=== PATIENT | female | born 1990 | race African-American/Black ===

== ENCOUNTER 2020-08-21 17:27 | Emergency (ER) | payer BC, OTHER ==
--- OUTSIDE RECORDS SUMMARY | 2020-08-21 17:30 | XMS REPORT | Continuity of Care Document ---
:1990 Author Organization [facility] t Address [address] [place] [address] Care Team Providers Name Role Phone Joe Alberts MD Attending Clinician Doctor Unassigned, Name Attending Clinician Unavailable Silva RN Attending Clinician Unavailable Fellow, [facility] Attending Clinician Unavailable Mirian RN Attending Clinician Unavailable Payers Payer Name Policy Type Policy Number Effective Date Expiration Date S ource Problems This patient has no known problems. Allergies, Adverse Reactions, Alerts Allergy Allergy Status Severity Reaction(s) Onset Inactive Treating Comm ents Source Name Type Date Date Clinician No Known DA Active U 2018-0 [facility] 7-12 [facility] s 00:00: d 00 [facility] No Known DA Active U 2016- [facility] Allergie -15 Clear s 00:00: Natarajan 00 [facility] Medications This patient has no known medications. Procedures This patient has no known procedures. Encounters Start End Encounter Admission Attending Care Care Encounter Source Date/Time Date/Time Type Type Clinicians Facility Department ID 2020-08-19 2020-08-19 Telephone LAURA Alberts 1.2.840.114 [id number] 00:00:00 00:00:00 [facility] 350.1.13.10 [facility] 4.2.7.2.686 e Group [phone] in [address] [place] [address] 2020-08-19 2020-08-19 Orders Doctor CORINA 1.2.840.114 [id number] 00:00:00 00:00:00 Only Unassigned, TERESSA 350.1.13.10 [facility] 4.2.7.2.686 [phone] 009 2020-08-17 2020-08-17 Refill [facility] 1.2.840.114 [id number] 00:00:00 00:00:00 [facility] 350.1.13.10 [facility] 4.2.7.2.686 e Group [id number] in [address] [place] [address] 2020-08-15 2020-08-15 Nurse CORINA Ascencio 1.2.840.114 [id number] 00:00:00 00:00:00 Triage [facility]is [facility]13.10 [facility] 4.2.7.2.686 [id number] 019 2020-08-14 2020-08-14 Routine [facility] 1.2.840.114 [id number] 10:52:22 11:57:42 [facility] 350.1.13.10 Visit [facility] 4.2.7.2.686 e Group [phone] in [address] [place] [address] 2020-07-29 2020-07-29 Orders Doctor CORINA 1.2.840.114 [id number] 00:00:00 00:00:00 Only Unassigned, TERESSA 350.1.13.10 [facility] 4.2.7.2.686 [id number] [id number] 2020-07-29 2020-07-29 Telephone [facility] 1.2.840.114 [id number] 00:00:00 00:00:00 [facility] 350.1.13.10 [facility] 4.2.7.2.686 e Group [id number] in [address] [place] [address] 2020-07-19 2020-07-19 Routine Hernandez Chauhan 1.2.840.114 [id number] 09:39:25 10:11:26 [facility] 350.1.13.10 Visit [facility]INICS 4.2.7.2.686 [id number] 113 2020-07-18 2020-07-18 Telephone [facility] 1.2.840.114 [id number] 00:00:00 00:00:00 [facility] 350.1.13.10 [facility] 4.2.7.2.686 e Group [phone] in [address] [facility] od 2020-07-18 2020-07-18 Nurse CORINA Vela 1.2.840.114 [id number] 00:00:00 00:00:00 Triage Lc GANN[place] 350.1.13.10 [place] 13272.2.7.2.686 [id number] [id number] 2020-07-17 2020-07-17 Routine [facility] 1.2.840.114 [id number] 10:20:15 11:09:54 [facility] 350.1.13.10 Visit [facility] 4.2.7.2.686 e Group [phone] in 134 [facility] Results Test Description Test Time Test Comments Results Result Comments Source Coronavirus 2019 nCoV Bedside 2020-07-05 20:54:00 Test Item Value Reference Range Interpretation Comme nts [facility] Negative Negative results should be treated (test code = [id number]) a s presumptive and, ifinconsistent with clinical s igns and symptoms or necessaryfor pa tient management, should be teste d with an alternativemole cular assay. Negative results do not preclude [id number] tion and should not be used as the sole basis forpatient management deci sions. Negative results should beconsidered in the context of a pa tient's recent exposures,histo ry, presence of clinical signs and symptoms consistentwith COVID-19. BASIC METABOLIC [id number] 20:22:00 Test Item Value Reference Range Interpretation Comments SODIUM (test code = NA) 135 mEq/L 134-147 N POTASSIUM (test code = 3.7 mEq/L 3.4-5.0 N K) CHLORIDE (test code = 105 mEq/L 100-108 N CL) CARBON DIOXIDE (test 26 mEq/l 21-33 N code = CO2) ANION GAP (test code = 8 0-20 N GAP) GLUCOSE (test code = 79 mg/dL 70-110 N GLU) BLOOD UREA NITROGEN 8 mg/dL 7-18 N (test code = BUN) GLOMERULAR FILTRATION 118.1 105-110 H Units of measure = RATE (test code = GFR) ml/mi n/1.73 m2 CREATININE (test code = 0.7 mg/dL 0.6-1.3 N CREAT) CALCIUM (test code = 9.9 mg/dL 8.0-10.5 N CA) Is patient ? YHOW MANY WEEKS? 10 WEEKSHCG [id number] 20:22:00 Test Item Value Reference Range Interpretation Comments HCG SERUM (test 346002.3 0 - 6 code = HCG) NOT > 6 S UGGESTIVE OF EARLY RISES TWO FOLD EVERY 2 DA YS; SUGGEST RECONFIRMING AF TER 2 DAYS. 150,000- 200,[address] TRIMESTER 10,000 - 50,000 2N D & 3RD TRIMESTERResult s in joann-Internati onal Units/mL Is patient ? YHOW MANY WEEKS? 10 WEEKSCBC W/AUTO [id number] 19:38:00 Test Item Value Reference Range Interpretation Comments WHITE BLOOD CELL (test code = 7.8 x10 3/uL 4.5-11.0 N WBC) RED BLOOD CELL (test code = 4.30 x10 6/uL 3.54-5.02 N RBC) HEMOGLOBIN (test code = HGB) 13.4 g/dL 11.0-15.0 N HEMATOCRIT (test code = HCT) 41.1 % 33.0-45.0 N MEAN CELL VOLUME (test code = 95.6 fL 81.0-99.0 N MCV) MEAN CELL HGB (test code = MCH) 31.2 pg 27.0-33.0 N MEAN CELL HGB CONCETRATION 32.6 g/dL 33.0-37.0 L (test code = MCHC) RED CELL DISTRIBUTION WIDTH CV 13.2 % 11.5-14.5 N (test code = RDW) RED CELL DISTRIBUTION WIDTH SD 46.4 fL 37.0-54.0 N (test code = RDW-SD) PLATELET COUNT (test code = 222 x10 3/uL 150-400 N PLT) MEAN PLATELET VOLUME (test code 11.3 fL 7.0-9.0 H = MPV) NEUTROPHIL % (test code = NT%) 61.8 % 56.0-77.0 N IMMATURE GRANULOCYTE % (test 1.2 % 0.0-2.0 N code = IG%) LYMPHOCYTE % (test code = LY%) 28.8 % 14.0-32.0 N MONOCYTE % (test code = MO%) 7.4 % 4.8-9.0 N EOSINOPHIL % (test code = EO%) 0.5 % 0.3-3.7 N BASOPHIL % (test code = BA%) 0.3 % 0.0-2.0 N NUCLEATED RBC % (test code = 0.0 % 0-0 N NRBC%) NEUTROPHIL # (test code = NT#) 4.82 x10 3/uL 2.0-7.6 N IMMATURE GRANULOCYTE # (test 0.09 x10 3/uL 0.00-0.03 H code = IG#) LYMPHOCYTE # (test code = LY#) 2.25 x10 3/uL 1.0-3.8 N MONOCYTE # (test code = MO#) 0.58 x10 3/uL 0.1-0.8 N EOSINOPHIL # (test code = EO#) 0.04 x10 3/uL 0.0-0.2 N BASOPHIL # (test code = BA#) 0.02 x10 3/uL 0.0-0.2 N NUCLEATED RBC # (test code = 0.00 x10 3/uL 0.0-0.1 N NRBC#) MANUAL DIFF REQUIRED (test code NO = MDIFF) CBC W/AUTO [id number] 19:37:00 Test Item Value Reference Range Interpretation Comments WHITE BLOOD CELL (test code = x10 3/uL 4.5-11.0 WBC) RED BLOOD CELL (test code = RBC) x10 6/uL 3.54-5.02 HEMOGLOBIN (test code = HGB) 13.4 g/dL 11.0-15.0 N HEMATOCRIT (test code = HCT) 41.1 % 33.0-45.0 N MEAN CELL VOLUME (test code = fL 81.0-99.0 MCV) MEAN CELL HGB (test code = MCH) pg 27.0-33.0 MEAN CELL HGB CONCETRATION (test g/dL 33.0-37.0 code = MCHC) RED CELL DISTRIBUTION WIDTH CV % 11.5-14.5 (test code = RDW) PLATELET COUNT (test code = PLT) 222 x10 3/uL 150-400 N NEUTROPHIL % (test code = NT%) % 56.0-77.0 LYMPHOCYTE % (test code = LY%) % 14.0-32.0 NEUTROPHIL # (test code = NT#) x10 3/uL 2.0-7.6 LYMPHOCYTE # (test code = LY#) x10 3/uL 1.0-3.8 MANUAL DIFF REQUIRED (test code = MDIFF) UA RFLX MICR CULT IF [id number] 19:20:00 Test Item Value Reference Range Interpretation Comments UA COLOR (test code = COLU) YELLOW YEL/STRAW UA APPEARANCE (test code = SL CLOUDY CLEAR APPU) UA GLUCOSE DIPSTICK (test code NEGATIVE NEGATIVE = DGLUU) UA BILIRUBIN DIPSTICK (test NEGATIVE NEGATIVE code = BILU) UA KETONE DIPSTICK (test code NEGATIVE NEGATIVE = KETU) UA SPECIFIC GRAVITY (test code 1.030 1.005-1.030 N = SGU) UA BLOOD DIPSTICK (test code = 2+ NEGATIVE A BENJAMIN) UA PH DIPSTICK (test code = 5.0 5.0-7.0 N KATIE) UA PROTEIN DIPSTICK (test code 1+ NEGATIVE A = PROU) UA UROBILINIOGEN DIPSTICK 4.0 mg/dL 0.2-1.0 A (test code = URO) UA NITRITE DIPSTICK (test code NEGATIVE NEGATIVE = CRYS) UA LEUKOCYTE ESTERASE DIPSTICK 2+ NEGATIVE A (test code = LEUU) UA WBC (test code = WBCU) 10-20 WBC/HPF 0-3 A UA RBC (test code = RBCU) 11-20 RBC/HPF 0-3 UA WBC NO REFLEX (test code = 10-20 WBC/HPF 0-3 A WBCUCL) UA BACTERIA (test code = BACU) NONE SEEN /HPF NONE SEEN UA SQUAMOUS CELLS (test code = 11-25 /HPF NONE SEEN A SQU) UA MUCUS (test code = MUCU) 2+ /LPF NONE SEEN A Indication for culture: Suprapubic PainSpecimen Description: CLEAN CATCH- DUP AB/PEL/SC/[id number] 19:10:00 [facility] 1990 Sex: F Name: JUSTIN BLANTON [facility] : Age/S: 29 / F [address] [place] [address] Blvd Unit #: [id number] Loc: [place] [address] Phys: Rafi Patel MD Acct: [id number] Dis Date: Status: REG ER PHONE #: [phone] Exam Date: 07/05/2020 1854 FAX #: [phone] Reason: see US PREG 1st TRIMTR EXAMS: CPT CODE: [id number] DUP AB/PEL/SC/LTD 33090 TRANSABDOMINAL OBSTETRICAL PELVIC ULTRASOUND, DUPLEX OVARIAN DOPPLER INDICATION:Pelvic Pain. Nausea and vomiting. Rule out ovarian torsion TECHNIQUE: Transabdominal obstetrical pelvic ultrasound was performed with brito scale and Doppler images. COMPARISONS: Pelvic ultrasound 01/19/2019 FINDINGS: The maternal urinary bladder appears normal. The uterus measures 11.3 x 7.6 x 10.3 cm. There is a single intrauterine gestation with mean sac diameter 5.1 cm. A pole is visible. Thefetal heart rate is 171 bpm. There is a 1.7 x 1.2 x 1.3 cm exophytic subserosal anterior uterine body fibroid. The right ovary measures 3.2 x 2.8 x 2.7 cm. There is no rmal color Doppler blood flow to the right ovary. There is normal low resistance arterial spectral Doppler waveform with peak velocity of 18 cm/s. The left ovary measures 3.2x 2.2 x 2.5 cm. There is normal color Doppler blood flow to the left ovary. There is a normal low resistance arterial spectral Doppler waveform with peak velocity of 32 cm/s. IMPRESSION: 1. There is a single live intrauterine gestation. The estimated ultrasonographic age is 10 weeks and 1 day. 2. There is bilateral ovarian bloodflow and no evidence of ovarian torsion. 3. There is a 1.7 x 1.2 x 1.3 cm exophytic subserosal anterior uterine body fibroid. at 1910 Reported and signed by: Eris White D.O. PAGE 1 Signed Report (CONTINUED) Name: JUSTIN BLANTON [facility] : 1990 Age/S: 29 / F [address] [place] [address] Bl Unit #: [id number] Loc: [place] [address] Phys: Rafi Patel MD Acct: [id number] Dis Date: Status: REG ER PHONE #: [phone] Exam Date: 07/05/2020 1854 FAX #: [phone] Reason: see US PREG 1st TRIMTR EXAMS: CPT CODE: [id number] DUP AB/PEL/SC/LTD 18387 <Continued> CC: Technologist: Olivier Morales RDMS() Trnscb Date/Time: 07/05/2020 (1909) [email or web address] Orig Print D/T: S: 07/05/2020 (1912) Probe: PAGE 2 Signed Report- US PREG 1ST [id number] 19:10:00 [facility] : 1990 Sex: F Name: JUSTIN BLANTON [facility] : Age/S: 29 / F [address] [place] [address] Bl Unit #: [id number] Loc: [place] [address] Phys: Rafi Patel MD Acct: [id number] Dis Date: Status: REG ER PHONE #: [phone] Exam Date: 07/05/2020 1854 FAX #: [phone] Reason: Pelvic Pain EXAMS: CPT CODE: [id number] US PREG 1ST TRIMTR 69044 TRANSABDOMINAL OBSTETRICAL PELVIC ULTRASOUND, DUPLEX OVARIAN DOPPLER INDICATION:Pelvic Pain. Nausea and vomiting. Rule out ovarian torsion TECHNIQUE: Transabdominal obstetrical pelvic ultrasound was performed with brito scale and Doppler images. COMPARISONS: Pelvic ultrasound 01/19/2019 FINDINGS: The maternal urinary bladder appears normal. The uterus measures 11.3 x 7.6 x 10.3 cm. There is a single intrauterine gestation with mean sac diameter 5.1 cm. A pole is visible. Thefetal heart rate is 171 bpm. There is a 1.7 x 1.2 x 1.3 cm exophytic subserosal anterior uterine body fibroid. The right ovary measures 3.2 x 2.8 x 2.7 cm. There is no rmal color Doppler blood flow to the right ovary. There is normal low resistance arterial spectral Doppler waveform with peak velocity of 18 cm/s. The left ovary measures 3.2x 2.2 x 2.5 cm. There is normal color Doppler blood flow to the left ovary. There is a normal low resistance arterial spectral Doppler waveform with peak velocity of 32 cm/s. IMPRESSION: 1. There is a single live intrauterine gestation. The estimated ultrasonographic age is 10 weeks and 1 day. 2. There is bilateral ovarian bloodflow and no evidence of ovarian torsion. 3. There is a 1.7 x 1.2 x 1.3 cm exophytic subserosal anterior uterine body fibroid. at 1910 Reported and signed by: Eris White D.O. PAGE 1 Signed Report (CONTINUED) Name: JUSTIN BLANTON : 1990 Age/S: 29 / F [address] [place] [address] Unit #: [id number] Loc: [place] [address] Phys: Rafi Patel MD Acct: [id number] Dis Date: Status: REG ER PHONE #: [phone] Exam Date: 07/05/2020 1854 FAX #: [phone] Reason: Pelvic Pain EXAMS: CPT CODE: [id number] US PREG 1ST TRIMTR 26039 <Continued> CC: Technologist: Olivier Morales RDMS(AB) Trnscb Date/Time: 07/05/2020 (1909) [email or web address] Orig Print D/T: S: 07/05/2020 (1912) Probe: PAGE 2 Signed Report- DUP AB/PEL/SC/[id number] 15:36:00 Name: JUSTIN BLANTON : 1990 Age/S: 28 / F [address] [place] [address] Unit #: [id number] Loc: [place] Phys: Rafi Patel MD Acct: [id number] Dis Date: Status: REG ER PHONE #: [phone] Exam Date: 01/19/2019 1523 FAX #: [phone] Reason: PAIN EXAMS: CPTCODE: [id number] DUP AB/PEL/SC/LTD 66150 PROCEDURE: FIRST TRIMESTER ULTRASOUND INDICATION: 13 weeks with pelvic pain andvaginal bleeding. COMPARISON: 12/16/2018 ultrasound. TRANSABDOMINAL SCAN: Uterus measures 10.4 x 7.1 x 7.3 cm containing intrauterine gestational sac demonstrating a pole within with average crown-rump length of 2.46 cm which correlates with 9 weeks 1 day gestational age. No heart tones or color flow appreciated within. Anterior myometrial round mass measures 1.9 x 1.7 x 1.8 cm likely representing fibroid. The right ovary appears normal measuring 2.8 x 1.6 x 2 cm with arterial waveforms documented. Left ovary measures 3.7 x 2.9 x 2.6 cm containing a 1.9 x 1.8 x 1.9 cm anechoic avascular cyst withinwhich may demonstrate a thickened wall consistent with corpus luteal cyst. Arterial wave forms to the ovary are documented. No adnexal masses are seen otherwise. No free pelvic fluid. TRANSVAGINAL SCAN: Not performed. IMPRESSION: Findings consistent with demise. SL: [id number] at 1536 Reported and signed by: Shilo Krishna M.D. CC: Ary Horton MD Technologist: Fariba Womack RDMS(OB)(AB) Trnscb Date/Time: 01/19/2019 (1536) [email or web address] PAGE 1 Signed Report- US PREG 1ST [id number] 15:36:00 Name: JUSTIN BLANTON [facility] : 1990 Age/S: 28 / F [address] [place] [address] Unit #: [id number] Loc: [id number] Phys: Cesar Thomas Acct: [id number] Dis Date: Status: REG ER PHONE #: [phone] Exam Date: 01/19/2019 1522 FAX #: [phone] Reason: Pelvic Pain EXAMS: CPTCODE: [id number] US PREG 1ST TRIMTR 28689 PROCEDURE: FIRST TRIMESTER ULTRASOUND INDICATION: 13 weeks with pelvic pain andvaginal bleeding. COMPARISON: 12/16/2018 ultrasound. TRANSABDOMINAL SCAN: Uterus measures 10.4 x 7.1 x 7.3 cm containing intrauterine gestational sac demonstrating a pole within with average crown-rump length of 2.46 cm which correlates with 9 weeks 1 day gestational age. No heart tones or color flow appreciated within. Anterior myometrial round mass measures 1.9 x 1.7 x 1.8 cm likely representing fibroid. The right ovary appears normal measuring 2.8 x 1.6 x 2 cm with arterial waveforms documented. Left ovary measures 3.7 x 2.9 x 2.6 cm containing a 1.9 x 1.8 x 1.9 cm anechoic avascular cyst withinwhich may demonstrate a thickened wall consistent with corpus luteal cyst. Arterial wave forms to the ovary are documented. No adnexal masses are seen otherwise. No free pelvic fluid. TRANSVAGINAL SCAN: Not performed. IMPRESSION: Findings consistent with demise. SL: [id number] at 1536 Reported and signed by: Shilo Krishna M.D. CC: Cesar RANDHAWA; Ary Horton MD Technologist: Fariba Womack RDMS(OB)(AB) Trnscb Date/Time: 01/19/2019 (1536) [email or web address] Orig Print D/T: S: 01/19/2019 (4560) Probe: PAGE 1 Signed ReportHEPATIC FUNCTION [id number] 15:33:00 Test Item Value Reference Range Interpretation Comments TOTAL PROTEIN (test code = PROT) 7.9 g/dL 6.4-8.2 N ALBUMIN (test code = ALB) 3.90 g/dL 3.4-5.0 N BILIRUBIN TOTAL (test code = 0.20 mg/dL 0.0-1.0 N BILT) BILIRUBIN DIRECT (test code = < 0.10 MG/DL 0.0-0.30 N BILD) BILIRUBIN INDIRECT (test code = 0.10 MG/DL BILIND) SGOT/AST (test code = AST) 13 IUnit/L 15-37 L SGPT/ALT (test code = ALT) 18 IUnit/L 15-65 N ALKALINE PHOSPHATASE TOTAL (test 45 IUnit/L 20-125 N code = ALKP) Is patient ? YHOW MANY WEEKS? 13 [id number] 15:33:00 Test Item Value Reference Range Interpretation Comments LIPASE (test code = LIP) 171 IUnit/L 73-393 N Is patient ? YHOW MANY WEEKS? 13 WEEKSHCG [id number] 15:33:00 Test Item Value Reference Range Interpretation Comments HCG SERUM (test 4011 0 - 6 code = HCG) NOT > 6 SUG GESTIVE OF EARLY RISES TWO FOLD EVERY 2 DAYS; MEDEL GGEST RECONFIRMING AF TER 2 DAYS. 150,000-20 0[address] TRIME[address] 10,000 - 50,000 2ND & 3RD TRIMESTERResult s in joann-Internati onal Units/mL Is patient ? YHOW MANY WEEKS? 13 WEEKSURINALYSIS [id number] 15:31:00 Test Item Value Reference Range Interpretation Comments UA COLOR (test code = COLU) STRAW YEL/STRAW UA APPEARANCE (test code = CLEAR CLEAR APPU) UA GLUCOSE DIPSTICK (test code NEGATIVE NEGATIVE = DGLUU) UA BILIRUBIN DIPSTICK (test NEGATIVE NEGATIVE code = BILU) UA KETONE DIPSTICK (test code NEGATIVE NEGATIVE = KETU) UA SPECIFIC GRAVITY (test code 1.004 1.005-1.030 L = SGU) UA BLOOD DIPSTICK (test code = 2+ NEGATIVE A BENJAMIN) UA PH DIPSTICK (test code = 6.0 5.0-7.0 N KATIE) UA PROTEIN DIPSTICK (test code NEGATIVE NEGATIVE = PROU) UA UROBILINIOGEN DIPSTICK 0.2 mg/dL 0.2-1.0 (test code = URO) UA NITRITE DIPSTICK (test code NEGATIVE NEGATIVE = CRYS) UA LEUKOCYTE ESTERASE DIPSTICK TRACE NEGATIVE A (test code = LEUU) UA RBC (test code = RBCU) 0-3 RBC/HPF 0-3 UA WBC NO REFLEX (test code = 0-3 WBC/HPF 0-3 WBCUCL) UA BACTERIA (test code = BACU) NONE SEEN /HPF NONE SEEN UA SQUAMOUS CELLS (test code = 6-10 /HPF NONE SEEN A SQU) UA MUCUS (test code = MUCU) TRACE /LPF NONE SEEN COMMENTS: Clean CatchCBC W/AUTO [id number] 15:04:00 Test Item Value Reference Range Interpretation Comments WHITE BLOOD CELL (test code = 6.37 x10 3/uL 4.5-11.0 N WBC) RED BLOOD CELL (test code = 4.42 x10 6/uL 3.54-5.02 N RBC) HEMOGLOBIN (test code = HGB) 13.6 g/dL 11.0-15.0 N HEMATOCRIT (test code = HCT) 41.0 % 33.0-45.0 N MEAN CELL VOLUME (test code = 92.8 fL 81.0-99.0 N MCV) MEAN CELL HGB (test code = MCH) 30.8 pg 27.0-33.0 N MEAN CELL HGB CONCETRATION 33.2 g/dL 33.0-37.0 N (test code = MCHC) RED CELL DISTRIBUTION WIDTH CV 12.8 % 11.5-14.5 N (test code = RDW) RED CELL DISTRIBUTION WIDTH SD 43.8 fL 37.0-54.0 N (test code = RDW-SD) PLATELET COUNT (test code = 198 x10 3/uL 150-400 N PLT) MEAN PLATELET VOLUME (test code 10.3 fL 7.0-9.0 H = MPV) NEUTROPHIL % (test code = NT%) 57.1 % 56.0-77.0 N IMMATURE GRANULOCYTE % (test 0.5 % 0.0-2.0 N code = IG%) LYMPHOCYTE % (test code = LY%) 34.4 % 14.0-32.0 H MONOCYTE % (test code = MO%) 5.8 % 4.8-9.0 N EOSINOPHIL % (test code = EO%) 1.7 % 0.3-3.7 N BASOPHIL % (test code = BA%) 0.5 % 0.0-2.0 N NUCLEATED RBC % (test code = 0.0 % 0-0 N NRBC%) NEUTROPHIL # (test code = NT#) 3.64 x10 3/uL 2.0-7.6 N IMMATURE GRANULOCYTE # (test 0.03 x10 3/uL 0.00-0.03 N code = IG#) LYMPHOCYTE # (test code = LY#) 2.19 x10 3/uL 1.0-3.8 N MONOCYTE # (test code = MO#) 0.37 x10 3/uL 0.1-0.8 N EOSINOPHIL # (test code = EO#) 0.11 x10 3/uL 0.0-0.2 N BASOPHIL # (test code = BA#) 0.03 x10 3/uL 0.0-0.2 N NUCLEATED RBC # (test code = 0.00 x10 3/uL 0.0-0.1 N NRBC#) MANUAL DIFF REQUIRED (test code NO = MDIFF) CHEMISTRY 8 [id number] 14:48:00 Test Item Value Reference Range Interpretation Comments ISTAT-SODIUM (test code = NAP) MMOL/L 134-147 ISTAT-POTASSIUM (test code = KP) MMOL/L 3.4-5.0 ISTAT-CHLORIDE (test code = CLP) MMOL/L 100-108 ISTAT CARBON DIOXIDE (test code = mmol/L 21-33 N ISTAT-CO2) ISTAT CALCIUM IONIZED (test code = MG/DL 1.12-1.32 ISTAT-MARCO) ISTAT-GLUCOSE (test code = GLUP) MG/DL 70-110 N ISTAT-BUN (test code = BUNP) MG/DL 7-18 L BEDSIDE CREATININE (test code = MG/DL 0.6-1.3 N CREATBED) GLOMERULAR FILTRATION RATE POC 151 ML/MIN (test code = GFRBED) CHEMISTRY 8 [id number] 14:48:00 Test Item Value Reference Range Interpretation Comments ISTAT-SODIUM (test 139 MMOL/L 134-147 N code = NAP) ISTAT-POTASSIUM (test 3.5 MMOL/L 3.4-5.0 N code = KP) ISTAT-CHLORIDE (test 102 MMOL/L 100-108 N Perform ed by code = CLP) certified opera tor at [facility] ISTAT CARBON DIOXIDE 24.0 mmol/L 21-33 N (test code = ISTAT-CO2) ISTAT CALCIUM IONIZED 1.18 MG/DL 1.12-1.32 N (test code = ISTAT-MARCO) ISTAT-GLUCOSE (test 87 MG/DL 70-110 N code = GLUP) ISTAT-BUN (test code = 4 MG/DL 7-18 L BUNP) BEDSIDE CREATININE 0.6 MG/DL 0.6-1.3 N (test code = CREATBED) GLOMERULAR FILTRATION 151 ML/MIN RATE POC (test code = GFRBED) - PREG UT [id number] 12:49:00 Name: JUSTIN BLANTON [facility] : 1990 Age/S: 28 / F [address] [place] [address] Unit #: [id number] Loc: [place] [id number] Phys: Klaus Diggs MD Acct: [id number] Dis Date: Status: REG ER PHONE #: [phone] Exam Date: 12/16/2018 1225 FAX #: [phone] Reason: PAIN, [place] EGNANT EXAMS: CPTCODE: [id number] US PREG UT TRANSVAGINAL 86015 Patient Name: JUSTIN BLANTON : 1990; Age: 28 years y/o Female MR: [id number] Study: - US PREG 1ST TRIMTR, - US PREG UT TRANSVAGINAL 12/16/2018 10:29 AM Ordering Physician: Klaus Diggs MD Clinical Indication: ; right pelvic pain, + Comparison: None TECHNIQUE: Pelvic ultrasound was performed with color and stein scale imaging. Transabdominal and transvaginal technique performed. FIND INGS: The pelvic transabdominal ultrasound static images show that the anteverted uterus measures 9.4 x 6.1 x 7.3 cm. A 1.7 cm subserosal uterine fibroid is seen at the posterior uterine wall. The pelvic transvaginal images show a single monochorionic/monoamnionic intrauterine with an ovoid gestational sac. The pole and yolk sac are seen. The estimated gestational age is 8 weeks 0 day by crown-rump length of 1.64 cm. The heart rate is 154 beats per minute. There are no subchorionic hemorrhages noted.The right ovary measures 2.3 x 1.8 x 2.5 cm and the left ovary measures 4.1 x 2.7 x 3.0 cm. Aleft-sided corpus luteum cyst is seen. There is normal ovarian contour and morphology. There are no adnexal masses. The Doppler images show normal bilateral ovarian blood flow. There is no free fluid in the cul-de-sac. IMPRESSION: 1. Single living intrauterine with estimated gestational age of 8 weeks 0 days . heart rate of 154 beats per minute. No sonographic evidence of hemorrhage. 2.Small posterior uterine fibroid. Followup may be performed with quantitative beta-hCG levelsand short interval sonography. PAGE 1 Signed Report (CONTINUED) Name: JUSTIN BLANTON [facility] Liliana Natarajan : 1990 Age/S: 28 / F [address] [place] [address] Unit #: [id number] Loc: [place] [address] Phys: Klaus Diggs MD Acct: [id number] Dis Date: Status: REG ER PHONE #: [phone] Exam Date: 12/16/2018 1225 FAX #: Reason: PAIN, EXAMS: CPT CODE: [id number] US PREG UT TRANSVAGINAL 49000 <Continued> SL: [id number] at 1249 Reported and signed by: Chetan Porter M.D. CC: Ary Horton MD; Klaus Diggs MD Technologist: Fariba Womack RDMS(OB)(AB) Trnscb Date/Time: 12/16/2018 (6006) [email or web address] Orig Print D/T: S: 12/16/2018 (0002) Probe: [id number] PAGE 2 Signed Report- US PREG 1ST [id number] 12:49:00 Name: JUSTIN [facility] : 1990 Age/S: 28 / F [address] [place] [address] Unit #: [id number] Loc: [place] [id number] Phys: Klaus Diggs MD Acct: [id number] Dis Date: Status: REG ER PHONE #: [phone] Exam Date: 12/16/2018 1225 FAX #: [phone] Reason: right pelvic pain, + EXAMS: CPTCODE: [id number] US PREG 1ST TRIMTR 48805 Patient Name : JUSTIN BLANTON : 1990; Age: 28 years y/o Female MR: [id number] Study: - US PREG 1ST TRIMTR, - US PREG UT TRANSVAGINAL 12/16/2018 10:29 AM Ordering Physician: Klaus Diggs MD Clinical Indication: ; right pelvic pain, + Comparison: None TECHNIQUE: Pelvic ultrasound was performed with color and stein scale imaging. Transabdominal and transvaginal technique performed. FINDINGS: The pelvic transabdominal ultrasound static images show that the anteverted uterus measures 9.4 x 6.1 x 7.3 cm. A 1.7 cm subserosal uterine fibroid is seen at the posterior uterine wall. The pelvic transvaginal images show a single monochorionic/monoamnionic intrauterine with an ovoid gestational sac. The pole and yolk sac are seen. The estimated gestational age is 8 weeks 0 day by crown-rump length of 1.64 cm. The heart rate is 154 beats per minute. There are no subchorionic hemorrhages noted.The right ovary measures 2.3 x 1.8 x 2.5 cm and the left ovary measures 4.1 x 2.7 x 3.0 cm. Aleft-sided corpus luteum cyst is seen. There is normal ovarian contour and morphology. There are no adnexal masses. The Doppler images show normal bilateral ovarian blood flow. There is no free fluid in the cul-de-sac. IMPRESSION: 1. Single living intrauterine with estimated gestational age of 8 weeks 0 days . heart rate of 154 beats per minute. No sonographic evidence of hemorrhage. 2.Small posterior uterine fibroid. Followup may be performed with quantitative beta-hCG levelsand short interval sonography. PAGE 1 Signed Report (CONTINUED) Name: JUSTIN BLANTON [facility] : 1990 Age/S: 28 / F [address] [place] [address] Unit #: [id number] Loc: [place] [address] Phys: Klaus Diggs MD Acct: [id number] Dis Date: Status: REG ER PHONE #: [phone] Exam Date: 12/16/2018 1225 FAX #: Reason: right pelvic pain, + EXAMS: CPT CODE: [id number] US PREG 1ST TRIMTR 75877 <Continued> SL: [id number] at 1249 Reported and signed by: Chetan Porter M.D. CC: Ary Horton MD; Klaus Diggs MD Technologist: Fariba Womack RDMS(OB)(AB) Trnscb Date/Time: 12/16/2018 (4224) [id number] Orig Print D/T: S: 12/16/2018 (5981) Probe: PAGE 2 Signed ReportHCG [id number] 11:27:00 Test Item Value Reference Range Interpretation Comments HCG SERUM (test 10155 0 - 6 code = HCG) NOT > 6 SUG GESTIVE OF EARLY RISES TWO FOLD EVERY 2 DAYS; MEDEL GGEST RECONFIRMING AF TER 2 DAYS. 150,000-20 0,[address] TRIME[address] 10,000 - 50,000 2ND & 3RD TRIMESTERResult s in joann-Internati onal Units/mL ADD ONIs patient ? YHOW MANY WEEKS? 5 WEEKSCOMMENTS: unsure of Gest Age COMPREHENSIVE METABOLIC [id number] 10:14:00 Test Item Value Reference Range Interpretation Comments SODIUM (test code = NA) 135 mEq/L 134-147 N POTASSIUM (test code = 3.3 mEq/L 3.4-5.0 L K) CHLORIDE (test code = 108 mEq/L 100-108 N CL) CARBON DIOXIDE (test 22 mEq/L 21-33 N code = CO2) ANION GAP (test code = 8 0-20 N GAP) GLUCOSE (test code = 105 mg/dL 70-110 N GLU) BLOOD UREA NITROGEN 7 mg/dL 7-18 N (test code = BUN) GLOMERULAR FILTRATION 118.9 105-110 H Units of measure = RATE (test code = GFR) ml/mi n/1.73 m2 CREATININE (test code = 0.7 mg/dL 0.6-1.3 N CREAT) TOTAL PROTEIN (test 7.3 g/dL 6.4-8.2 N code = PROT) ALBUMIN (test code = 3.70 g/dL 3.4-5.0 N ALB) CALCIUM (test code = 8.6 mg/dL 8.0-10.5 N CA) BILIRUBIN TOTAL (test 0.20 mg/dL 0.0-1.0 N code = BILT) SGOT/AST (test code = 10 IUnit/L 15-37 L AST) SGPT/ALT (test code = 15 IUnit/L 15-65 N ALT) ALKALINE PHOSPHATASE 41 IUnit/L 20-125 N TOTAL (test code = ALKP) HCG SERUM [id number] 10:14:00 Test Item Value Reference Range Interpretation Comments HCG SERUM QUAL (test code = SERUM POSITIVE NEGATIVE A HCGQL) COMPREHENSIVE METABOLIC [id number] 10:07:00 Test Item Value Reference Range Interpretation Comments SODIUM (test code = NA) 135 mEq/L 134-147 N POTASSIUM (test code = 3.3 mEq/L 3.4-5.0 L K) CHLORIDE (test code = 108 mEq/L 100-108 N CL) CARBON DIOXIDE (test 22 mEq/L 21-33 N code = CO2) ANION GAP (test code = 8 0-20 N GAP) GLUCOSE (test code = 105 mg/dL 70-110 N GLU) BLOOD UREA NITROGEN 7 mg/dL 7-18 N (test code = BUN) GLOMERULAR FILTRATION 118.9 105-110 H Units of measure = RATE (test code = GFR) ml/mi n/1.73 m2 CREATININE (test code = 0.7 mg/dL 0.6-1.3 N CREAT) TOTAL PROTEIN (test 7.3 g/dL 6.4-8.2 N code = PROT) ALBUMIN (test code = 3.70 g/dL 3.4-5.0 N ALB) CALCIUM (test code = 8.6 mg/dL 8.0-10.5 N CA) BILIRUBIN TOTAL (test 0.20 mg/dL 0.0-1.0 N code = BILT) SGOT/AST (test code = 10 IUnit/L 15-37 L AST) SGPT/ALT (test code = 15 IUnit/L 15-65 N ALT) ALKALINE PHOSPHATASE 41 IUnit/L 20-125 N TOTAL (test code = ALKP) HCG SERUM [id number] 10:07:00 Test Item Value Reference Range Interpretation Comments HCG SERUM QUAL (test code = HCGQL) NEGATIVE COMPREHENSIVE METABOLIC [id number] 10:06:00 Test Item Value Reference Range Interpretation Comments SODIUM (test code = NA) 135 mEq/L 134-147 N POTASSIUM (test code = 3.3 mEq/L 3.4-5.0 L K) CHLORIDE (test code = 108 mEq/L 100-108 N CL) CARBON DIOXIDE (test 22 mEq/L 21-33 N code = CO2) ANION GAP (test code = 8 0-20 N GAP) GLUCOSE (test code = 105 mg/dL 70-110 N GLU) BLOOD UREA NITROGEN 7 mg/dL 7-18 N (test code = BUN) GLOMERULAR FILTRATION 118.9 105-110 H Units of measure = RATE (test code = GFR) ml/mi n/1.73 m2 CREATININE (test code = 0.7 mg/dL 0.6-1.3 N CREAT) TOTAL PROTEIN (test 7.3 g/dL 6.4-8.2 N code = PROT) ALBUMIN (test code = 3.70 g/dL 3.4-5.0 N ALB) CALCIUM (test code = 8.6 mg/dL 8.0-10.5 N CA) BILIRUBIN TOTAL (test 0.20 mg/dL 0.0-1.0 N code = BILT) SGOT/AST (test code = 10 IUnit/L 15-37 L AST) SGPT/ALT (test code = 15 IUnit/L 15-65 N ALT) ALKALINE PHOSPHATASE IUnit/L 20-125 TOTAL (test code = ALKP) HCG SERUM [id number] 10:06:00 Test Item Value Reference Range Interpretation Comments HCG SERUM QUAL (test code = HCGQL) NEGATIVE URINALYSIS [id number] 10:00:00 Test Item Value Reference Range Interpretation Comments UA COLOR (test code = COLU) YELLOW YEL/STRAW UA APPEARANCE (test code = APPU) SL CLOUDY CLEAR UA GLUCOSE DIPSTICK (test code = NEGATIVE NEGATIVE DGLUU) UA BILIRUBIN DIPSTICK (test code NEGATIVE NEGATIVE = BILU) UA KETONE DIPSTICK (test code = NEGATIVE NEGATIVE KETU) UA SPECIFIC GRAVITY (test code = 1.021 1.005-1.030 N SGU) UA BLOOD DIPSTICK (test code = 1+ NEGATIVE A BENJAMIN) UA PH DIPSTICK (test code = KATIE) 5.0 5.0-7.0 N UA PROTEIN DIPSTICK (test code = NEGATIVE NEGATIVE PROU) UA UROBILINIOGEN DIPSTICK (test 0.2 mg/dL 0.2-1.0 code = URO) UA NITRITE DIPSTICK (test code = NEGATIVE NEGATIVE CRYS) UA LEUKOCYTE ESTERASE DIPSTICK NEGATIVE NEGATIVE (test code = LEUU) UA WBC (test code = WBCU) 0-3 WBC/HPF 0-3 UA RBC (test code = RBCU) 4-10 RBC/HPF 0-3 UA BACTERIA (test code = BACU) TRACE /HPF NONE SEEN UA SQUAMOUS CELLS (test code = 11-25 /HPF NONE SEEN A SQU) UA MUCUS (test code = MUCU) TRACE /LPF NONE SEEN CBC W/AUTO [id number] 09:59:00 Test Item Value Reference Range Interpretation Comments WHITE BLOOD CELL (test code = 6.04 x10 3/uL 4.5-11.0 N WBC) RED BLOOD CELL (test code = 3.99 x10 6/uL 3.54-5.02 N RBC) HEMOGLOBIN (test code = HGB) 12.5 g/dL 11.0-15.0 N HEMATOCRIT (test code = HCT) 37.2 % 33.0-45.0 N MEAN CELL VOLUME (test code = 93.2 fL 81.0-99.0 N MCV) MEAN CELL HGB (test code = MCH) 31.3 pg 27.0-33.0 N MEAN CELL HGB CONCETRATION 33.6 g/dL 33.0-37.0 N (test code = MCHC) RED CELL DISTRIBUTION WIDTH CV 13.2 % 11.5-14.5 N (test code = RDW) RED CELL DISTRIBUTION WIDTH SD 44.9 fL 37.0-54.0 N (test code = RDW-SD) PLATELET COUNT (test code = 197 x10 3/uL 150-400 N PLT) MEAN PLATELET VOLUME (test code 10.7 fL 7.0-9.0 H = MPV) NEUTROPHIL % (test code = NT%) 58.1 % 56.0-77.0 N IMMATURE GRANULOCYTE % (test 0.3 % 0.0-2.0 N code = IG%) LYMPHOCYTE % (test code = LY%) 34.8 % 14.0-32.0 H MONOCYTE % (test code = MO%) 4.8 % 4.8-9.0 N EOSINOPHIL % (test code = EO%) 1.5 % 0.3-3.7 N BASOPHIL % (test code = BA%) 0.5 % 0.0-2.0 N NUCLEATED RBC % (test code = 0.0 % 0-0 N NRBC%) NEUTROPHIL # (test code = NT#) 3.51 x10 3/uL 2.0-7.6 N IMMATURE GRANULOCYTE # (test 0.02 x10 3/uL 0.00-0.03 N code = IG#) LYMPHOCYTE # (test code = LY#) 2.10 x10 3/uL 1.0-3.8 N MONOCYTE # (test code = MO#) 0.29 x10 3/uL 0.1-0.8 N EOSINOPHIL # (test code = EO#) 0.09 x10 3/uL 0.0-0.2 N BASOPHIL # (test code = BA#) 0.03 x10 3/uL 0.0-0.2 N NUCLEATED RBC # (test code = 0.00 x10 3/uL 0.0-0.1 N NRBC#) MANUAL DIFF REQUIRED (test code NO = GIORGIO) - US PREG 1ST [id number] 11:26:00 Name: JUSTIN BLANTON [facility] : 1990 Age/S: 28 / F [address] Unit #: [id number] Loc: [place] [address] Phys: Mendoza Dave MD Acct: [id number] Dis Date: Status: REG ER PHONE #: [phone] Exam Date: 09/30/2018 1019 FAX #: Reason: ABD PAIN, PREG, EVALUATE FOR ECTOPIC EXAMS: CPT: [id number] US PREG 1ST TRIMTR 46487 C3 REASON FOR EXAM: . Lower abdominal pain. COMPARISON: None.FINDINGS: Transabdominal and transvaginal ultrasound was performed. B-mode grayscale, color Doppler, and spectral Doppler images are obtained. A possible gestational sac is identified within the endometrial cavity with a mean sac diameter of 0.5 cm which corresponds to 5 weeks 0 days gestation and EVELIN of 06/02/2019. A yolk sac is present; however, no pole or heart tones are identified. The uterus measures 9.3 cm in the longitudinal, 5.5 cm in the AP, and 5.6 cm in the transverse dimension. The bilateral ovaries are well visualized. The right ovary measures 5.5 x 3.2 x 3.4 cm. The left ovary measures 6.1 x 3.2 x 4.3 cm. There is 7 mm calcification is present in the right ovary. A 3.7 cm simple left ovarian cyst is present. Normal color flow is identified to both ovaries. No free fluid is visualized within the posterior cul-de-sac. CLINICAL DATES: 5 weeks 6 days, EVELIN of 05/27/2019. IMPRESSION: 1. A possible gestational sac is identified within the endometrial cavity with a mean sac diameter of 0.5 cm which corresponds to 5 weeks 0 days gestation and EVELIN of 06/02/2019. A yolk sac is present; however, no pole or heart tones are identified. In the absence of definite intrauterine gestation, extrauterine or ectopic cannot be excluded, although no distinct evidence of ectopic ispresent. Recommend continued follow-up with serial quantitative beta HCGs and follow-up sonogram if necessary. 2. Simple left ovarian cyst, and nonspecific right ovarian calcification. at 1126 Reported and signed by: Joe Wagner M.D. PAGE 1Signed Report (CONTINUED) Name: JUSTIN BLANTON : 1990 Age/S: 28 / F [address] Unit #: [id number] Loc: [place] [address] Phys: Mendoza Dave MD Acct: [id number] Dis Date: Status: REG ER PHONE #: [phone] Exam Date: 09/30/2018 1017 FAX #: Reason: ABD PAIN, PREG, EVALUATE FOR ECTOPIC EXAMS: CPT: [id number] US PREG 1ST TRIMTR 84380 <Continued> CC: Mendoza Dave MD Technologist: Judy Romero Trnarb Date/Time: 09/30/2018 (1126) [email or web address].[email or web address] PAGE 2 Signed Report Name: JUSTIN BLANTON : 1990 Age/S: 28 / F [address] Unit #: [id number] Loc: [place] [address] Phys: Mendoza Dave MD Acct: [id number] Dis Date: Status: REG ER PHONE #: [phone] Exam Date: 09/30/2018 1017 FAX #: Reason: ABD PAIN, PREG, EVALUATE FOR ECTOPIC EXAMS: CPT: [id number] US PREG 1ST TRIMTR 51263 <Continued> Orig Print D/T: S: 09/30/2018 (1129) Probe: PAGE 3 Signed Report- US PREG UT [id number] 11:26:00 Name: JUSTIN BLANTON [facility] : 1990 Age/S: 28 / F [address] Unit #: [id number] Loc: [place] [address] Phys: Mendoza Dave MD Acct: [id number] Dis Date: Status: REG ER PHONE #: [phone] Exam Date: 09/30/2018 1034 FAX #: Reason: abd pain, preg (dx in ED..new) eval ectopic EXAMS: CPT: [id number] US PREG UT TRANSVAGINAL 06025 C3 REASON FOR EXAM: . Lower abdominal pain. COMPARISON: None.FINDINGS: Transabdominal and transvaginal ultrasound was performed. B-mode grayscale, color Doppler, and spectral Doppler images are obtained. A possible gestational sac is identified within the endometrial cavity with a mean sac diameter of 0.5 cm which corresponds to 5 weeks 0 days gestation and EVELIN of 06/02/2019. A yolk sac is present; however, no pole or heart tones are identified. The uterus measures 9.3 cm in the longitudinal, 5.5 cm in the AP, and 5.6 cm in the transverse dimension. The bilateral ovaries are well visualized. The right ovary measures 5.5 x 3.2 x 3.4 cm. The left ovary measures 6.1 x 3.2 x 4.3 cm. There is 7 mm calcification is present in the right ovary. A 3.7 cm simple left ovarian cyst is present. Normal color flow is identified to both ovaries. No free fluid is visualized within the posterior cul-de-sac. CLINICAL DATES: 5 weeks 6 days, EVELIN of 05/27/2019. IMPRESSION: 1. A possible gestational sac is identified within the endometrial cavity with a mean sac diameter of 0.5 cm which corresponds to 5 weeks 0 days gestation and EVELIN of 06/02/2019. A yolk sac is present; however, no pole or heart tones are identified. In the absence of definite intrauterine gestation, extrauterine or ectopic cannot be excluded, although no distinct evidence of ectopic ispresent. Recommend continued follow-up with serial quantitative beta HCGs and follow-up sonogram if necessary. 2. Simple left ovarian cyst, and nonspecific right ovarian calcification. at 1126 Reported and signed by: Joe Wagner M.D. PAGE 1Signed Report (CONTINUED) Name: HARVINDERJUSTIN BERTHA [facility] : 1990 Age/S: 28 / F [address] Unit #: [id number] Loc: [place] [address] Phys: Mendoza Dave MD Acct: [id number] Dis Date: Status: REG ER PHONE #: [phone] Exam Date: 09/30/2018 1034 FAX #: Reason: abd pain, preg (dx in ED..new) eval ectopic EXAMS: CPT: [id number] US PREG UT TRANSVAGINAL 01910 <Continued> CC: Mendoza Dave MD Technologist: Judy Romero Trnscb Date/Time: 09/30/2018 (1126) [email or web address].[email or web address] PAGE 2 Signed Report Name: JUSTIN BLANTON [facility] : 1990 Age/S: 28 / F [address] Unit #: [id number] Loc: [place] [address] Phys: Mendoza Dave MD Acct: [id number] Dis Date: Status: REG ER PHONE #: [phone] Exam Date: 09/30/2018 1034 FAX #: Reason: abd pain, preg (dx in ED..new) eval ectopic EXAMS: CPT: [id number] US PREG UT TRANSVAGINAL 58446 <Continued> Orig Print D/T: S: 09/30/2018 (1129) Probe: [id number] PAGE 3 Signed ReportHCG [id number] 10:32:00 Test Item Value Reference Range Interpretation Comments HCG SERUM (test 1042 mi-IU/ML 0-6 H 0 - 6 code = HCG) NOT > 6 SUGGE STIVE OF EARLY RIS ES TWO FOLD EVERY 2 DA YS; SUGGEST RECONFIRMING AF TER 2 DAYS. 150,000-200,[address] TRIME[address] 10 ,000 - 50,000 2ND & 3RD TRIMESTER BASIC METABOLIC [id number] 10:26:00 Test Item Value Reference Range Interpretation Comments SODIUM (test code = NA) 140 mmol/L 134-147 N POTASSIUM (test code = 3.6 mmol/L 3.4-5.0 N K) CHLORIDE (test code = 108 mmol/L 100-108 N CL) CARBON DIOXIDE (test 25 mmol/L 21-32 N code = CO2) ANION GAP (test code = 7.0 GAP calc 4.0-15.0 N GAP) GLUCOSE (test code = 95 MG/DL 70-110 N GLU) BLOOD UREA NITROGEN 12 MG/DL 7-18 N (test code = BUN) GLOMERULAR FILTRATION >=60 max estimate >60 RATE (test code = GFR) estGFR CREATININE (test code = 0.8 MG/DL 0.6-1.0 N CREAT) CALCIUM (test code = CA) 8.7 MG/DL 8.5-10.1 N HEPATIC FUNCTION [id number] 10:26:00 Test Item Value Reference Range Interpretation Comments TOTAL PROTEIN (test code = PROT) 7.8 G/DL 6.4-8.2 N ALBUMIN (test code = ALB) 3.8 G/DL 3.4-5.0 N BILIRUBIN TOTAL (test code = 0.20 MG/DL 0.2-1.2 N BILT) BILIRUBIN DIRECT (test code = < 0.10 MG/DL 0.00-0.30 N BILD) BILIRUBIN INDIRECT (test code = 0.10 MG/DL 0.2-1.2 L BILIND) SGOT/AST (test code = AST) 16 Unit/L 15-37 N SGPT/ALT (test code = ALT) 19 Unit/L 12-78 N ALKALINE PHOSPHATASE TOTAL (test 48 Unit/L 45-117 N code = ALKP) [id number] 10:26:00 Test Item Value Reference Range Interpretation Comments LIPASE (test code = LIP) 179 Unit/L 114-286 N UA RFLX MICR CULT IF [id number] 10:21:00 Test Item Value Reference Range Interpretation Comments UA COLOR (test code = YELLOW discript YEL/STRAW COLU) UA APPEARANCE (test code HAZY discript CLEAR A = APPU) UA GLUCOSE DIPSTICK (test NEGATIVE mg/dL NEG code = DGLUU) UA BILIRUBIN DIPSTICK NEGATIVE mg/DL (NEG) 0 (test code = BILU) UA KETONE DIPSTICK (test NEGATIVE mg/DL (NEG) 0 code = KETU) UA SPECIFIC GRAVITY (test 1.020 SG 1.005-1.030 code = SGU) UA BLOOD DIPSTICK (test 2+ Collin/mcL (NEG) 0 A code = BENJAMIN) UA PH DIPSTICK (test code <=5.0 pH UNITS 5.0-7.0 = KATIE) UA PROTEIN DIPSTICK (test NEGATIVE mg/DL <30 code = PROU) UA UROBILINIOGEN DIPSTICK NORMAL mg/DL (NORM) <2.0 (test code = URO) UA NITRITE DIPSTICK (test NEGATIVE SCREEN NEG code = CRYS) UA LEUKOCYTE ESTERASE NEGATIVE Leuk/mcL (NEG) 0 DIPSTICK (test code = LEUU) UA WBC (test code = WBCU) 1-3 #WBC/HPF 0-3 UA RBC (test code = RBCU) 10-20 #RBC/HPF 0-3 A UA BACTERIA (test code = TRACE /HPF NONE-TRACE BACU) UA SQUAMOUS CELLS (test 2+ /HPF NONE A code = SQU) UA CULTURE NEEDED? (test NO, WBC<10 Criteria Culture CHK code = UACULT) SOURCE OF URINE: CLEAN CATCHless than 18 yrs old, neutropenic, or urological surgery? NOPrimary Indication for Culture: Suprapubic PainPROTHROMBIN TIME 2018-09-30 10:08:00 Test Item Value Reference Range Interpretation Comments PT PATIENT (test code = PTP) 12.7 SECONDS 9.3-12.9 N INTERNATIONAL NORMAL RATIO 1.10 INR Unit 0.8-1.2 N (test code = INR) UA RFLX MICR CULT IF [id number] 10:04:00 Test Item Value Reference Range Interpretation Comments UA COLOR (test code = COLU) YELLOW discript YEL/STRAW UA APPEARANCE (test code = HAZY discript CLEAR A APPU) UA GLUCOSE DIPSTICK (test NEGATIVE mg/dL NEG code = DGLUU) UA BILIRUBIN DIPSTICK (test NEGATIVE mg/DL (NEG) 0 code = BILU) UA KETONE DIPSTICK (test NEGATIVE mg/DL (NEG) 0 code = KETU) UA SPECIFIC GRAVITY (test 1.020 SG 1.005-1.030 code = SGU) UA BLOOD DIPSTICK (test 2+ Collin/mcL (NEG) 0 A code = BENJAMIN) UA PH DIPSTICK (test code = <=5.0 pH UNITS 5.0-7.0 KATIE) UA PROTEIN DIPSTICK (test NEGATIVE mg/DL <30 code = PROU) UA UROBILINIOGEN DIPSTICK NORMAL mg/DL (NORM) <2.0 (test code = URO) UA NITRITE DIPSTICK (test NEGATIVE SCREEN NEG code = CRYS) UA LEUKOCYTE ESTERASE NEGATIVE Leuk/mcL (NEG) 0 DIPSTICK (test code = LEUU) UA CULTURE NEEDED? (test Criteria Culture CHK code = UACULT) SOURCE OF URINE: CLEAN CATCHless than 18 yrs old, neutropenic, or urological surgery? NOPrimary Indication for Culture: Suprapubic PainCBC W/AUTO DIFF 2018-09-30 10:01:00 Test Item Value Reference Range Interpretation Comments WHITE BLOOD CELL (test code = 4.4 K/mm3 3.5-11.0 N WBC) RED BLOOD CELL (test code = RBC) 4.29 M/mm3 4.70-6.10 L HEMOGLOBIN (test code = HGB) 13.2 G/DL 10.4-14.9 N HEMATOCRIT (test code = HCT) 38.9 % 31.5-44.1 N MEAN CELL VOLUME (test code = 90.7 Fl 84.5-98.6 N MCV) MEAN CELL HGB (test code = MCH) 30.8 pg 27.0-34.2 N MEAN CELL HGB CONCETRATION (test 33.9 G/DL 31.5-34.0 N code = MCHC) RED CELL DISTRIBUTION WIDTH (test 13.1 SD 11.5-14.5 N code = RDW) PLATELET COUNT (test code = PLT) 198.0 K/mm3 150-450 N MEAN PLATELET VOLUME (test code = 10.50 fL 7.0-10.5 N MPV) NEUTROPHIL % (test code = NT%) 48.6 % 40-76 N LYMPHOCYTE % (test code = LY%) 40.2 % 20.5-51.1 N MONOCYTE % (test code = MO%) 9.9 % 1.7-9.3 H EOSINOPHIL % (test code = EO%) 1.1 % 0.0-6.0 N BASOPHIL % (test code = BA%) 0.2 % 0.0-2.0 N NEUTROPHIL # (test code = NT#) 2.11 K/mm3 1.8-7.6 N LYMPHOCYTE # (test code = LY#) 1.8 K/mm3 0.6-3.2 N MONOCYTE # (test code = MO#) 0.4 K/mm3 0.3-1.1 N EOSINOPHIL # (test code = EO#) 0.1 K/mm3 0.0-0.4 N BASOPHIL # (test code = BA#) 0.0 K/mm3 0.0-0.1 N MANUAL DIFF REQUIRED (test code = NO DIFF/SCN CRITERIA MDIFF)
[2020-08-21 19:55] LABS: Absolute Lymphocytes (CBC) 1.9 K/uL (0.7-4.9); Basophils % 0.7 % (0-1.3); Lymphocytes % 32.3 % (15.3-44.8); MPV 9.7 fL (7.6-11.3); RBC Red Blood Cell Count 3.72 M/uL (3.86-4.86)
[2020-08-21] MEDS ORDERED: ACETAMINOPHEN 500 MG TAB ONE (20:00)
[2020-08-21] MEDS ORDERED: DICYCLOMINE HCL 10 MG CAP ONE (20:01)
[2020-08-21 20:13] LABS: Urine Blood TRACE (NEG); Urine Glucose NEGATIVE (NEG); Urine Protein 1+ (NEG); Urine Specific Gravity >1.030 (1.005-1.030); Urine pH 6.5 (5.0-7.0)
--- NOTE | 2020-08-21 20:49 | RAD REPORT ---
EXAM DESCRIPTION: US - OB Limited - 08/21/2020 8:04 pm CLINICAL HISTORY: ABD PAINI am going to state COMPARISON: No comparisons FINDINGS: Amniotic fluid volume is normal. Anterior placenta shows no previa or low-lying positionin g. No abruption, marginal hematoma or acute placental finding. Internal os is closed. Left ovary visualized and unremarkable. Normal flow within the stroma. Right ovary obscured by bowel. Single intrauterine gestation identified. Heart rate is 138 BPM. Estimated age based on femur length is 16 weeks 6 days. Calculated EVELIN is 01/30/2021. No gross anatomic abnormality seen on limited asses sment. IMPRESSION: Single 16 week 6 day IUP with normal heart rate. No gross anatomic abnormality seen on l imited assessment. Anterior placenta is unremarkable, amniotic fluid volume is normal, and internal os is closed.
[2020-08-21 21:05] LABS: ALT/SGPT 17 U/L (12-78); AST/SGOT 12 U/L (15-37); Albumin 3.3 g/dL (3.4-5.0); BUN Blood Urea Nitrogen 8 mg/dL (7-18); Bicarbonate 24 mmol/L (21-32); Bilirubin Direct < 0.1 mg/dL (0-0.2); Bilirubin Total 0.2 mg/dL (0.2-1.0); Glucose Level 89 mg/dL (74-106); Lipase 218 U/L (73-393); Potassium 3.7 mmol/L (3.5-5.1); Protein, Total 7.3 g/dL (6.4-8.2); Sodium Level 139 mmol/L (136-145)
[2020-08-21 21:09] LABS: Alkaline Phosphatase ND U/L (45-117); HCG, Quantitative 7500 mIU/mL (1-3)
--- NOTE | 2020-08-21 21:16 | EDPHYS ---
Physician Documentation [facility] Name: Anu Clancy Age: 29 yrs Sex: Female : 1990 Arrival Date: 08/21/2020 Time: 17:29 Bed 17 Private MD: ED Physician Krish Huston HPI: 08/21 19:25 This 29 yrs old Black Female presents to ER via Ambulatory with complaints of Back Pain cp - 17 wks Preg, Abdominal Cramping. 19:25 The patient presents to the emergency department with abdominal cramping and lower back cp pain. The estimated gestational age is 17 weeks. course: care: private OB physician, Leakage of Fluid: none appreciated. Associated signs and symptoms: Pertinent negatives: dysuria, fever, nausea, ruptured membranes, vaginal bleeding, vaginal discharge, vomiting. 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 - Social history:: Smoking status: Patient denies any tobacco usage or history of. ROS: 19:30 Constitutional: Negative for body aches, chills, fever, poor PO intake. cp 19:30 Eyes: Negative for injury, pain, redness, and discharge. cp 19:30 ENT: Negative for ear pain, sore throat, difficulty swallowing, difficulty handling secretions. 19:30 Cardiovascular: Negative for chest pain. 19:30 Respiratory: Negative for cough, shortness of breath, wheezing. 19:30 Abdomen/GI: Positive for abdominal cramps, Negative for nausea, vomiting, and diarrhea. 19:30 Back: Positive for pain at rest, pain with movement, of the low back area. 19:30 : Negative for urinary symptoms, pelvic pain, vaginal bleeding, vaginal discharge. 19:30 Neuro: Negative for altered mental status, headache, numbness, weakness. 19:30 All other systems are negative. Exam: 19:35 Constitutional: The patient appears in no acute distress, alert, awake, non-toxic, well cp developed, well nourished. 19:35 Head/Face: Normocephalic, atraumatic. cp 19:35 Eyes: Periorbital structures: appear normal, Conjunctiva: normal, no exudate, no injection, Sclera: no appreciated abnormality, Lids and lashes: appear normal, bilaterally. 19:35 ENT: External ear(s): are unremarkable, Nose: is normal, Posterior pharynx: Airway: no evidence of obstruction, patent. 19:35 Neck: ROM/movement: is normal, is supple, without pain, no range of motions limitations. 19:35 Chest/axilla: Inspection: normal. 19:35 Cardiovascular: Rate: normal, Edema: is not appreciated. 19:35 Respiratory: the patient does not display signs of respiratory distress, Respirations: normal, no use of accessory muscles, no retractions, labored breathing, is not present. 19:35 Abdomen/GI: Inspection: gravid appearance, is noted, Bowel sounds: active, all quadrants, Palpation: soft, in all quadrants, mild abdominal tenderness, in all quadrants. 19:35 Back: pain, that is mild, of the low back area, ROM is normal. 19:35 Neuro: Motor: moves all fours, strength is normal, Sensation: is normal, Gait: is steady, at a normal pace, without difficulty. Vital Signs: 18:12 BP 152 / 91; Pulse 80; Resp 17; Temp 98.9; Pulse Ox 100% ; Weight 88 kg; Height 5 ft. 9 ll1 in. (175.26 cm); Pain 9/10; 21:24 BP 138 / 82; Pulse 81; Resp 17; Temp 98.5; Pulse Ox 100% on R/A; Pain 0/10; mg2 18:12 Body Mass Index 28.65 (88.00 kg, 175.26 cm) ll1 MDM: 19:20 Patient medically screened. cp 20:00 Differential diagnosis: threatened Ab, inevitable Ab, UTI. cp 21:15 Data reviewed: vital signs, nurses notes, lab test result(s), radiologic studies, cp ultrasound. 21:15 Counseling: I had a detailed discussion with the patient and/or guardian regarding: the cp historical points, exam findings, and any diagnostic results supporting the discharge/admit diagnosis, the presence of at least one elevated blood pressure reading (>120/80) during this emergency department visit, lab results, radiology results, the need for outpatient follow up, an OB/Gyne specialist, to return to the emergency department if symptoms worsen or persist or if there are any questions or concerns that arise at home. Response to treatment: the patient's symptoms have mildly improved after treatment, and as a result, I will discharge patient. 08/21 19:23 Order name: Urine Dipstick--Ancillary (enter results); Complete Time: 20:45 mw2 08/21 20:45 Interpretation: Normal except: UBLD TRACE; UPROT 1+. cp 08/21 19:23 Order name: Urine --Ancillary (enter results); Complete Time: 20:45 mw2 08/21 19:25 Order name: Basic Metabolic Panel; Complete Time: 21:11 cp 08/21 21:11 Interpretation: Normal except: CL 108; CRE 0.40. cp 08/21 19:25 Order name: CBC with Diff; Complete Time: 20:45 cp 08/21 20:46 Interpretation: Normal except: RBC 3.72; HGB 11.8; HCT 34.0. cp 08/21 19:25 Order name: Hepatic Function; Complete Time: 21:11 cp 08/21 21:11 Interpretation: Normal except: AST 12; ALB 3.3; GLOB 4.0; A/G 0.8. cp 08/21 19:25 Order name: Lipase; Complete Time: 21:11 cp 08/21 19:23 Order name: Urine Dipstick-Ancillary (obtain specimen); Complete Time: 19:59 mw2 08/21 19:25 Order name: US OB Limited; Complete Time: 20:55 cp 08/21 19:26 Order name: Abo/rh Typing cp 08/21 19:26 Order name: Quantitative Hcg cp 08/21 19:26 Order name: ABO/RH typing; Complete Time: 20:45 EDMS 08/21 19:26 Order name: HCG, Quantitative; Complete Time: 21:11 EDMS 08/21 19:23 Order name: Urine Test (obtain specimen); Complete Time: 19:59 mw2 08/21 19:25 Order name: IV Saline Lock; Complete Time: 19:59 cp 08/21 19:25 Order name: Labs collected and sent; Complete Time: 19:59 cp Administered Medications: 19:59 Drug: Bentyl 20 mg Route: PO; mg2 21:16 Follow up: Response: No adverse reaction mg2 21:16 Not Given (Patient Refused): Tylenol 1000 mg PO once mg2 Disposition: 08/21/20 21:15 Discharged to Home. Impression: related conditions, unspecified, first trimester, Low back pain, Lower abdominal pain, unspecified - cramping. - Condition is Stable. - Discharge Instructions: Abdominal Pain During , Back Pain, Adult, How to Take Your Blood Pressure, [id number], Back Exercises, Form - Blood Pressure Record Sheet. - Medication Reconciliation Form, Thank You Letter, Antibiotic Education, Prescription Opioid Use, Work release form form. - Follow up: Private Physician; When: 2 - 3 days; Reason: Recheck today's complaints. - Problem is new. - Symptoms have improved. Addendum: 08/23/2020 19:25 Co-signature as Attending Physician, Krish Huston MD I agree with the assessment and c rae plan of care. Signatures: Dispatcher [employer] Krish Bautista MD MD cha Page, Corey, PA PA cp Adia Peterson 2 Esau Nicole RN RN mg2 Jax Keith RN RN ll1 Corrections: (The following items were deleted from the chart) 08/21 21:24 21:15 08/21/2020 21:15 Discharged to Home. Impression: related conditions, mg2 unspecified, first trimester; Low back pain; Lower abdominal pain, unspecified - cramping. Condition is Stable. Forms are Work release form, Medication Reconciliation Form, Thank You Letter, Antibiotic Education, Prescription Opioid Use. Follow up: Private Physician; When: 2 - 3 days; Reason: Recheck today's complaints. Problem is new. Symptoms have improved. cp
--- NOTE | 2020-08-21 21:16 | ER ---
Nurse's Notes [facility] Name: Anu Clancy Age: 29 yrs Sex: Female : 1990 Arrival Date: 08/21/2020 Time: 17:29 Bed 17 Private MD: Diagnosis: related conditions, unspecified, first trimester;Low back pain;Lower abdominal pain, unspecified-cramping Presentation: 08/21 18:12 Chief complaint: Patient states: Abd cramping with low back pain for 1 days. 17 weeks ll1 . G4, P1. No fever or vaginal bleeding. No N/V/D. Coronavirus screen: Client denies travel out of the [place] in the last 14 days. At this time, the client does not indicate any symptoms associated with coronavirus-19. Ebola Screen: Patient denies travel to an Ebola-affected area in the 21 days before illness onset. Initial Sepsis Screen: Does the patient meet any 2 criteria? No. Patient's initial sepsis screen is negative. Does the patient have a suspected source of infection? Yes: Acute abdominal pain. Risk Assessment: Do you want to hurt yourself or someone else? Patient reports no desire to harm self or others. Onset of symptoms was August 21, 2020. 18:12 Method Of Arrival: Ambulatory ll1 18:12 Acuity: LISA 3 ll1 Triage Assessment: 21:16 General: Appears in no apparent distress. comfortable, Behavior is calm, cooperative. mg2 Musculoskeletal: No deficits noted. 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 - Social history:: Smoking status: Patient denies any tobacco usage or history of. Screenin:15 Abuse screen: Denies threats or abuse. Denies injuries from another. Nutritional mg2 screening: No deficits noted. Tuberculosis screening: No symptoms or risk factors identified. Fall Risk IV access (20 points). Assessment: 19:40 General: Appears in no apparent distress. comfortable. Pain: Complains of pain in mg2 abdomen. Neuro: Level of Consciousness is awake, alert, obeys commands, Oriented to person, place, time, situation. Cardiovascular: Capillary refill < 3 seconds Patient's skin is warm and dry. Respiratory: Airway is patent Respiratory effort is even, unlabored, Respiratory pattern is regular, symmetrical. GI: Reports lower abdominal pain, upper abdominal pain. : No signs and/or symptoms were reported regarding the genitourinary system. EENT: No signs and/or symptoms were reported regarding the EENT system. Derm: Skin is intact, is healthy with good turgor, Skin is pink, warm \T\ dry. normal. Musculoskeletal: Circulation, motion, and sensation intact. Capillary refill < 3 seconds. 21:20 Reassessment: Patient appears in no apparent distress at this time. Patient and/or mg2 family updated on plan of care and expected duration. Pain level reassessed. Vital Signs: 18:12 BP 152 / 91; Pulse 80; Resp 17; Temp 98.9; Pulse Ox 100% ; Weight 88 kg; Height 5 ft. 9 ll1 in. (175.26 cm); Pain 9/10; 21:24 BP 138 / 82; Pulse 81; Resp 17; Temp 98.5; Pulse Ox 100% on R/A; Pain 0/10; mg2 18:12 Body Mass Index 28.65 (88.00 kg, 175.26 cm) ll1 ED Course: 17:29 Patient arrived in ED. ds1 18:13 Triage completed. ll1 18:13 Arm band placed on. ll1 19:19 Krish Ji PA is PHCP. cp 19:19 Krish Huston MD is Attending Physician. cp 19:27 Esau Nicole, EVERARDO is Primary Nurse. mg2 19:40 Inserted saline lock: 20 gauge in right antecubital area, using aseptic technique. mg2 Blood collected. 20:00 No provider procedures requiring assistance completed. mg2 20:04 US OB Limited In Process Unspecified. EDMS 21:16 Patient has correct armband on for positive identification. mg2 21:24 IV discontinued, intact, bleeding controlled, No redness/swelling at site. Pressure mg2 dressing applied. Administered Medications: 19:59 Drug: Bentyl 20 mg Route: PO; mg2 21:16 Follow up: Response: No adverse reaction mg2 21:16 Not Given (Patient Refused): Tylenol 1000 mg PO once mg2 Outcome: 21:15 Discharge ordered by . goldy 21:24 Discharged to home ambulatory. mg2 21:24 Condition: stable 21:24 Discharge instructions given to patient, Instructed on discharge instructions, follow up and referral plans. Demonstrated understanding of instructions, follow-up care. 21:24 Patient left the ED. mg2 Signatures: Dispatcher [employer] EDUT Carolynn Smith dsKrish Duron PA PA cp Gardose, Michele, RN RN mg2 Jax Keith RN RN ll1 Corrections: (The following items were deleted from the chart) 21:16 19:59 Tylenol 1000 mg PO mg2 mg2
[2020-08-21 21:33] VITALS: O2SAT 100
[2020-08-21 21:35] VITALS: BP 138/82; TEMP 98.5
== END 2020-08-21 21:24 | disposition home or self-care (01) ==
LOC: ER 17:27
DX: O99.891 Other specified diseases and conditions complicating pregnancy (principal); M54.5 Low back pain; R10.30 Lower abdominal pain, unspecified; Z3A.17 17 weeks gestation of pregnancy
CPT/HCPCS: 36415; 76815; 80048; 80076; 81003; 81025; 83690; 84702; 85025; 86900; 86901; 99284